=== PATIENT | female | born 1970 | race Caucasian/White ===

== ENCOUNTER → 2020-06-01 17:11 | Outpatient (CLI) | payer BC, SELFPAY ==
--- NOTE | ~2020-06-01 | MM_ITS ---
EXAMINATION: MM screening ree BI w rosette HISTORY: Screening mammogram, family history of breast cancer in her mother. TECHNIQUE: Craniocaudal and mediolateral oblique 3-D tomosynthesis images were obtained and synthetic 2-D images were generated. CAD analysis was submitted and interpreted. COMPARISON: 02/28/2019, 02/12/2018, 01/11/2017 BREAST PARENCHYMAL COMPOSITION: The breasts are extremely dense, which lowers the sensitivity of mamm ography. FINDINGS: There is no evidence of suspicious mass, calcification, or architectural distortion to sugg est malignancy in either breast. There has been no suspicious interval change. IMPRESSION: 1. No mammographic evidence of malignancy. 2. Recommend routine screening mammography in one year. BI-RADS Category 1: Negative Reviewed, dictated and finalized at location A. ING HEAD TENDER
== END ==
PROVIDERS: PCP Internal Medicine; Visit Provider Advanced Practice Midwife
DX: Z12.31 Encounter for screening mammogram for malignant neoplasm of breast (principal)
CPT/HCPCS: 77063; 77067

== ENCOUNTER 2020-08-23 15:41 | Emergency (ER) | payer BC, SELFPAY ==
--- NOTE | ~2020-08-23 | CT_ITS ---
EXAMINATION: CT abdomen pelvis w con DATE: 08/23/2020 17:22 INDICATION: Right lower quadrant pain. TECHNIQUE: Computed tomography (CT) of the abdomen and pelvis was performed with 100 cc Omnipaque 350 intravenous contrast. The dose-length product was 593.69 mGy-cm. Automated exposure control and iter ative reconstruction technique were employed. COMPARISON: CT dated 08/11/2014 FINDINGS: Bibasilar dependent atelectasis. No significant pleural or pericardial effusion. Heart size normal. Fatty infiltration of the liver. There is a 1 cm liver cyst right hepatic lobe. There are smaller hyp odense lesions of the liver, most likely benign. The spleen, pancreas, adrenal glands and kidneys are normal. The appendix is thickened and enhancing with surrounding periappendiceal inflammation, consistent wit h acute appendicitis. Appendix measures up to 1 cm transversely. There is an IUD present in expected position. No evidence for free air or abscess. Small fat-containi ng umbilical hernia. No free air or free fluid. Gallbladder is present. No acute osseous abnormality. Gallbladder is present. IMPRESSION: 1. Acute uncomplicated appendicitis. Reviewed, dictated and finalized at location A. ERY ASSOCIATE
[2020-08-23 16:00] VITALS: BP 134/91; PULSE 94; RESP 18; TEMP 35.7; O2SAT 95
--- NOTE | 2020-08-23 16:02 | ED.ABDPAIN ---
HPI - Abdominal Pain General Chief Complaint: Abdominal Pain Stated Complaint: pain in lower R side Time Seen by Provider: 08/23/20 16:07 Source: patient Mode of arrival: ambulatory Limitations: no limitations History of Present Illness HPI narrative: 50-year-old woman comes in today complaining of pain in right lower quadrant that started 3 days ago. Pain is worse with movement and with brisk walking. She states that she has no appetite today. Patient states she feels mildly ill but has had no nausea, vomiting, diarrhea, cough or cold symptoms, fever, dysuria, hematuria or vaginal discharge. MD elicited complaint: abdominal pain Pertinent past history: none Onset (ago): day(s) (3) Pain Consistency: constant Location: RLQ Severity: severe Quality: sharp Radiation: none Migration to: no migration Exacerbating factors: movement Relieving factors: rest Associated symptoms: anorexia Related Data Home Medications Medication Instructions Recorded Confirmed Mirena 1 vaginal insert VAGINAL 08/23/20 08/23/20 USEASDIRECTD Allergies Allergy/AdvReac Type Severity Reaction Status Date / Time Penicillins Allergy Unknown Unverified 11/04/08 15:43 Review of Systems Constitutional: Constitutional: Denies chills, Denies fever(s) and Denies weakness ENT: Denies nasal congestion and Denies sore throat Cardiovascular: Cardiovascular: Denies chest pain and Denies radiating jaw, neck or arm pain Respiratory: Respiratory: Denies cough and Denies dyspnea Gastrointestinal: Gastrointestinal: Reports as per HPI, Reports abdominal pain, Denies diarrhea, Denies nausea and Denies vomiting Genitourinary: Genitourinary: Denies hematuria, Denies dysuria and Denies vaginal discharge Musculoskeletal: Musculoskeletal: Denies arthralgias and Denies joint swelling Integumentary/Breasts: Skin/Breast: Denies pruritus, Denies erythema and Denies rash Neurologic: Denies vertigo, Denies dizziness and Denies syncope Hematologic/Lymphatic: Hematologic/Lymphatic: Denies easy bleeding and Denies easy bruising Allergic/Immunologic: Allergic/Immunologic: Denies throat swelling and Denies tongue swelling PMF Surgical History Surgical History (Updated 08/23/20 @ 16:12 by Justin Torres MD) H/O: x 2 Social History Social History (Updated 08/23/20 @ 16:12 by Justin Torres MD) Smoking status: Never smoker Alcohol intake: never Substance use: never Living arrangements: with family Exam Const: General: healthy appearing Limitations: no limitations Other: [id number] acute distress. HENMT: Ears: external ears normal, TM's normal bilaterally and EAC's normal General nose exam: Normal nares present Face and sinus: normal facial exam Mouth: Yes moist mucous membranes Throat: posterior oropharynx normal Eyes: Conjunctivae: conjunctivae normal Pupils: Equal, round and reactive pupils present EOM: EOMs intact bilaterally Resp: Effort & Inspection: normal respiratory effort and not labored Auscultation: clear to auscultation bilaterally, no rales, no rhonchi and no wheezes Cardio: Rate: regular rate Rhythm: regular rhythm Heart sounds: no murmurs GI: GI Palp: Yes Soft to palpation, Yes Tenderness to palpation present (GI) (RLQ) and Yes Rebound tenderness present Auscultation: normal bowel sounds Skin: General skin exam: normal color, no jaundice and no pallor Rashes: no rashes Neuro: General: patient oriented x3, moves all extremities, no focal motor deficits and CN's II-XI intact bilaterally Speech: normal speech Gait exam (Neuro): Normal gait present Extrem: General: normal to inspection and no clubbing, cyanosis or edema Psych: Appearance: grossly normal and well kempt Mental Status: mental status grossly normal Affect: normal affect Attitude: cooperative Thought content: Yes Normal thought content present Course Course Emergency Course: Discussed patient's findings with Dr. Fuller
[2020-08-23] MEDS: SODIUM CHLORIDE 0.9% IV 1,000 ML 999 ML IV CONT (16:26)
[2020-08-23] MEDS: ONDANSETRON INJ 4 MG/2 ML VIAL IV PUSH ×2 (16:26→18:10)
[2020-08-23] MEDS: HYDROmorphone HCL INJ (*CRX) 2 MG/ML VIAL 0.5 MG IV PUSH (16:27)
[2020-08-23 16:28] LABS: Basophils Absolute Auto 0.05 K/mm3 (0.00-0.10); Basophils Percent Auto 0.6 % (0.0-1.0); Eosinophils Absolute Auto 0.08 K/mm3 (0.02-0.50); Eosinophils Percent Auto 0.9 % (1.0-6.0); Hematocrit 39.4 % (35.0-49.0); Hemoglobin 13.3 g/dL (12.0-15.0); Immature Granulocyte Absolute 0.03 K/mm3 (0.00-0.00); Immature Granulocyte Percent A 0.3 % (0.0-0.0); Lymphocytes Absolute Auto 2.06 K/mm3 (1.10-4.50); Lymphocytes Percent Auto 23.9 % (18.0-42.0); Mean Corpuscular HGB Conc 33.8 g/dL (32.0-36.0); Mean Platelet Volume 9.7 fl (9.2-11.8); Monocytes Absolute Auto 0.49 K/mm3 (0.10-0.90); Monocytes Percent Auto 5.7 % (2.0-11.0); Neutrophils Absolute Auto 5.9 K/mm3 (1.7-7.2); Neutrophils Percent Auto 68.6 % (50.0-70.0); Platelet Count Result 298 K/mm3 (150-420); Red Blood Count 4.58 M/mm3 (4.20-5.40); Red Cell Distribution Width 12.1 % (11.6-14.4); White Blood Count 8.6 K/mm3 (4.8-10.8)
[2020-08-23 16:39] LABS: Add Urine Microscopic? YES; Appearance Urine Clear (Clear); Bilirubin Urine Negative (Negative); Blood Urine 1+ (Negative); Color Urine Yellow (Yellow); Glucose Urine UA Negative (Negative); Ketones Urine 1+ (Negative); Leukocyte Esterase Ur Negative LEU/UL (Negative); Nitrate Urine Negative (Negative); Protein Urine Negative (Negative); Specific Grav Ur >= 1.030 (1.010-1.020); Urobilinogen Urine 0.2 mg/dL (0.2-1.0)
[2020-08-23 16:43] LABS: Partial Thromboplastin Time 30.5 SEC (23.90-30.70); Prothrombin Time 10.6 Seconds (9.50-12.10)
[2020-08-23 16:45] LABS: Bacteria Urine Trace /hpf; Mucus Urine Few /lpf; Squamous Epithelial Cell Urine Many /hpf (Few); WBC Urine 0-3 /hpf (0-3)
[2020-08-23 16:49] LABS: Alanine Aminotransferase 24 U/L (14-59); Albumin Level 3.8 g/dL (3.4-5.0); Alkaline Phosphatase 78 U/L (46-116); Anion Gap 10 mmol/L (8-16); Aspartate Amino Transferase 25 U/L (15-37); Bilirubin,Total 0.6 mg/dL (0.00-1.00); Blood Urea Nitrogen 7 mg/dL (7-18); Calcium 8.6 mg/dL (8.5-10.1); Carbon Dioxide 26 mmol/L (21-32); Chloride 101 mmol/L (98-108); Estimated CRCL calculation 78 ml/min; Estimated Glomerular Filt Rate > 60; Glucose 119 mg/dL (70-99); Lipase 58 U/L (73-393); Osmolality Calculated 283 mOsm/kg (285-295); Sodium 137 mmol/L (136-145); Total Protein 7.7 g/dL (6.4-8.2)
[2020-08-23 16:51] LABS: Lactic Acid Reflex 0.8 mmol/L (0.4-2.0); Potassium 3.7 mmol/L (3.5-5.1)
--- NOTE | 2020-08-23 17:11 | PC.NURSE ---
pt to xray per wheelchair for CT scan
--- NOTE | 2020-08-23 17:40 | PC.NURSE ---
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 awaiting return call from surgeon health professional.
[2020-08-23 17:52] VITALS: BP 121/64; PULSE 72; RESP 20; TEMP 36.5; O2SAT 98
--- NOTE | 2020-08-23 18:21 | PC.NURSE ---
[facility] called for transport, [facility] unavailable.
[2020-08-23 18:22] VITALS: BP 121/64; PULSE 72; RESP 20; TEMP 36.5; O2SAT 98
--- NOTE | 2020-08-23 18:41 | PC.NURSE ---
here, took home some personal items. marked on belongings flowsheet.
--- NOTE | 2020-08-23 18:44 | PC.NURSE ---
[facility] here, report to Sh[facility] . pt loaded to cot.
== END 2020-08-23 18:55 | disposition short-term general hospital (02) ==
PROVIDERS: Emergency Provider Emergency Medicine; PCP Internal Medicine
DX: K35.80 Unspecified acute appendicitis (principal)
CPT/HCPCS: 36415; 74177; 80053; 81001; 83605; 83690; 85025; 85610; 85730; 96361; 96374; 96375; 96376; 99285; J1170; J1956; J2405; J7030; Q9967

== ENCOUNTER 2020-08-23 19:28 | Observation (INO) | payer BC, SELFPAY ==
--- NOTE | 2020-08-23 19:46 | ADMGEN ---
This patient, Judy Rueda, was admitted to Medical Room 252-01. Patient/family oriented to hospital policies and general routines including ID bracelet, bed and alarms, visiting hours, pain management, procedures, bathroom and other care routines, personal items, smoking policy, room service/diet, and visiting hours. Information on how to activate the Rapid Response Team has been discussed. Patient/Family are encouraged to report perceived risks to care and to ask questions if they do not understand what they are told or what they should do.
[2020-08-23 20:00] VITALS: BMI 27.9
[2020-08-23] MEDS: ONDANSETRON INJ 4 MG/2 ML VIAL IV PUSH (20:34)
[2020-08-23] MEDS: LACTATED RINGERS 1,000 ML 100 ML IV CONT (20:34)
[2020-08-23 22:00] VITALS: BP 110/65; PULSE 73; RESP 21; TEMP 36.1; O2SAT 100
[2020-08-24] VITALS (14 sets, daily range): BP systolic 108–127; BP diastolic 60–77; PULSE 76–90; RESP 9–20; TEMP 36.6–37.1; O2SAT 98–100
[2020-08-24] MEDS: ONDANSETRON INJ 4 MG/2 ML VIAL IV PUSH ×4 (00:49→21:54)
[2020-08-24] MEDS: MORPHINE SULFATE (*CRX) 2 MG/ML INJ IV PUSH ×2 (00:53→04:13)
[2020-08-24 05:10] LABS: Basophils Percent Auto 0.2 % (0.2-1.2); Hematocrit 36.4 % (37.0-47.0); Hemoglobin 12.4 g/dL (12.0-15.0); Immature Granulocyte Absolute 0.04 K/mm3 (0.00-0.031); Immature Granulocyte Percent A 0.4 % (0-0.5); Lymphocytes Absolute Auto 1.12 K/mm3 (0.9-3.2); Lymphocytes Percent Auto 9.9 % (18.3-44.2); Mean Corpuscular HGB Conc 34.1 g/dl (32-36); Mean Corpuscular Hemoglobin 29.9 pg (26-34); Mean Corpuscular Volume 87.7 fl (80-100); Mean Platelet Volume 9.8 fl (7.4-10.4); Monocytes Absolute Auto 0.5 K/mm3 (0.1-0.6); Monocytes Percent Auto 4.5 % (2.6-8.5); Neutrophils Absolute Auto 9.7 K/mm3 (1.3-6.7); Platelet Count Result 279 k/mm3 (150-375); Red Blood Count 4.15 M/mm3 (4.2-5.4); Red Cell Distribution Width 12.2 % (11.5-14.5); White Blood Count 11.4 K/mm3 (4.5-10.0)
[2020-08-24 05:20] LABS: Anion Gap 5 mmol/L (8-16); Blood Urea Nitrogen 8 mg/dL (7-17); Calcium 8.1 mg/dL (8.4-10.2); Carbon Dioxide 26 mmol/L (22-30); Chloride 105 mmol/L (98-107); Estimated CRCL calculation 97 ml/min; Estimated Glomerular Filt Rate > 60; Glucose 116 mg/dL (65-105); Sodium 136 mmol/L (137-145)
[2020-08-24] MEDS: metroNIDAZOLE 500 MG/ISO 100ML 500 MG/100 ML BAG 100 MG IVPB ×4 (06:09→17:58)
--- NOTE | 2020-08-24 07:25 | PM.IMHP ---
H&P: HPI History of Present Illness Date/Time: 08/24/20 07:25 Chief Complaint: Right lower quadrant pain Narrative: Judy Rueda is a 50 year old female Who presented to [facility] last night with complaints of right lower quadrant pain. Her pain started 3 days ago and began as a mild pain in the right side. Pain continued to progressively worsen over Sunday and Sunday. She then tried to go to work yesterday but while she was at work her pain continued to worsen. She also had some nausea that started yesterday. She denies any fevers or any change in bowel habits. She has never felt anything like this before. In [facility] to the ED, she was noted to have evidence of acute appendicitis on CT. She was then transferred to [facility] for further treatment. Review of Systems Review of Systems: All systems reviewed & are unremarkable except as noted in HPI and below Eyes: Eyes: Denies change in vision ENT: Denies hearing loss, Denies neck pain and Denies sore throat Cardiovascular: Cardiovascular: Denies chest pain and Denies dyspnea Respiratory: Respiratory: Denies cough, Denies dyspnea and Denies wheezing Gastrointestinal: Gastrointestinal: Reports as per HPI Genitourinary: Genitourinary: Denies hematuria and Denies dysuria Musculoskeletal: Musculoskeletal: Denies arthralgias, Denies joint swelling and Denies neck pain Allergic/Immunologic: Allergic/Immunologic: Denies wheezing PMFSH Past Medical History Medical History Healthy adult Surgical History Surgical History H/O: x 2 Family History Family History Mother Diabetes mellitus Breast cancer Father Acute myocardial infarction Cerebrovascular accident Social History Social History Smoking status: Never smoker Alcohol intake: never Substance use: never Substance use type: does not use Gender identity (if verbalized by the patient): Female Sexual Orientation (if Verbalized by the Patient): Straight or Heterosexual Spiritual care concerns: No Meds Home Medications and Allergies Home Medications Medication Instructions Recorded Confirmed Type Mirena 1 vaginal insert VAGINAL 08/23/20 08/23/20 History USEASDIRECTD loratadine [Claritin] 10 mg PO DAILY 08/23/20 08/23/20 History multivit with min-folic acid 1 tablet PO DAILY 08/23/20 08/23/20 History [Adult One Daily Multivitamin] Allergies Allergy/AdvReac Type Severity Reaction Status Date / Time Penicillins Allergy Unknown Hives Verified 08/24/20 00:01 Vital Signs Vital Signs - 24 hr 08/23/20 22:00 08/24/20 06:00 Temperature 36.1 C L 36.9 C Pulse Rate 73 89 Respiratory Rate 21 H 20 Blood Pressure 110/65 108/61 Pulse Oximetry 100 98 Exam Const: General: alert; No acute distress Orientation/consciousness: patient oriented x3 Limitations: no limitations HENMT: Head: normocephalic and atraumatic Ears: hearing grossly normal bilaterally General nose exam: Normal external nose present and Normal nares present Mouth: Yes Normal oral and palatal mucosa present and Yes moist mucous membranes Eyes: General: appearance normal, both eyes and all related structures Conjunctivae: conjunctivae normal Sclera: sclerae normal Pupils: Equal, round and reactive pupils present EOM: EOMs intact bilaterally Neck: Neck: normal visual inspection, full ROM, no lymphadenopathy, supple and no JVD Lymphatic: no lymphadenopathy noted Chest: Chest palpation & inspection: normal inspection of the chest Resp: Effort & Inspection: normal respiratory effort and able to speak in complete sentences Auscultation: clear to auscultation bilaterally Percussion: percussion normal Cardio: Jugular venous distension: no JV
--- NOTE | 2020-08-24 08:09 | WPDANESEPPF ---
Anes - Initial Pre Proc Eval Procedure: Operation Date: 08/24/20 15:45 Proposed Procedures p Laparoscopic Appendectomy, Possible Open - Facundo Colon DO Date/Time: 08/24/20 08:09 Surgeon: Facundo Colon DO Pre Op Diagnosis: Appendicitis Patient Data Age: 50 Gender: F Height: 1.65 m Weight: 76.1 kg Last Vital Signs Temp 36.9 C 08/24/20 06:00 Pulse 89 08/24/20 06:00 Resp 20 08/24/20 06:00 BP 108/61 08/24/20 06:00 Pulse Ox 98 08/24/20 06:00 Allergies Allergy/AdvReac Type Severity Reaction Status Date / Time Penicillins Allergy Unknown Hives Verified 08/24/20 08:14 Home Medications Medication Instructions Recorded Confirmed Type Adult One Daily Multivitamin 1 tablet PO DAILY 08/23/20 08/23/20 History Mirena 1 vaginal insert VAGINAL 08/23/20 08/23/20 History USEASDIRECTD loratadine [Claritin] 10 mg PO DAILY 08/23/20 08/23/20 History hydrocodone-acetaminophen [[place]] 1 tablet PO Q4H PRN #10 tablet 08/24/20 Rx Laboratory Tests 08/24/20 08/24/20 04:46 04:46 WBC 11.4 K/mm3 H K/mm3 (4.5-10.0) RBC 4.15 M/mm3 L M/mm3 (4.2-5.4) Hgb 12.4 g/dL g/dL (12.0-15.0) Hct 36.4 % L % (37.0-47.0) MCV 87.7 fl fl (80-100) MCH 29.9 pg pg (26-34) MCHC 34.1 g/dl g/dl (32-36) RDW 12.2 % % (11.5-14.5) Plt Count 279 k/mm3 k/mm3 (150-375) MPV 9.8 fl fl (7.4-10.4) Immature Gran % (Auto) 0.4 % % (0-0.5) Neut % (Auto) 85.0 % H % (45.5-73.1) Lymph % (Auto) 9.9 % L % (18.3-44.2) [place] % (Auto) 4.5 % % (2.6-8.5) Eos % (Auto) 0.0 % % (0-4.4) Baso % (Auto) 0.2 % % (0.2-1.2) Lymph # (Auto) 1.12 K/mm3 K/mm3 (0.9-3.2) [place] # (Auto) 0.5 K/mm3 K/mm3 (0.1-0.6) Eos # (Auto) 0.0 K/mm3 K/mm3 (0-0.3) Baso # (Auto) 0.0 K/mm3 K/mm3 (0.0-0.1) Abs Immat Gran (auto) 0.04 K/mm3 H K/mm3 (0.00-0.031) Absolute Neuts (auto) 9.7 K/mm3 H K/mm3 (1.3-6.7) Absolute Nucleated RBC 0.0 K/mm3 K/mm3 (0.0-0.012) Nucleated RBC % 0.0 % % (0.0-0.2) Sodium 136 mmol/L L mmol/L (137-145) Potassium 4.0 mmol/L mmol/L (3.4-5.0) Chloride 105 mmol/L mmol/L (98-107) Carbon Dioxide 26 mmol/L mmol/L (22-30) Anion Gap 5 mmol/L L mmol/L (8-16) BUN 8 mg/dL mg/dL (7-17) Creatinine 0.60 mg/dL L mg/dL (0.7-1.0) Estim Creat Clear Calc 97 ml/min ml/min Estimated GFR > 60 (59 - ) Glucose 116 mg/dL H mg/dL (65-105) Calcium 8.1 mg/dL L mg/dL (8.4-10.2) Patient hx anesthesia problems: none Family hx anesthesia problems: none [facility] Past Medical History Medical History Healthy adult Surgical History Surgical History H/O: x 2 Family History Family History Mother Diabetes mellitus Breast cancer Father Acute myocardial infarction Cerebrovascular accident Social History Social History Smoking status: Never smoker Alcohol intake: never Substance use: never Substance use type: does not use Gender identity (if verbalized by the patient): Female Sexual Orientation (if Verbalized by the Patient): Straight or Heterosexual Spiritual care concerns: No Anes - Eval Final PreProcedure Day of Procedure 08/24/20 08:09 Patient weight: overweight Heart: regular rate and rhythm Lungs: clear to auscultation and normal air movement Airway: Mallampati scale class II Neurological: alert and oriented Last oral intake: >/= 8 hours ASA classification: II Emergent: no Anesthetic plan: proceed Anesthesia type and monitoring: general ETT Informed Consent: The patient's anesthetic plan and its attenda
[2020-08-24] MEDS: LACTATED RINGERS 1,000 ML 30 ML IV CONT ×2 (08:23→11:05)
--- NOTE | 2020-08-24 08:29 | PC.NURSE ---
To OR per bed, IV saline locked.
--- NOTE | 2020-08-24 09:53 | WPDHPUPDATE1 ---
History and Physical Update Update Date/Time: 08/24/20 09:53 History and Physical has been reviewed, including an updated exam of the patient. There are NO changes in the patient's condition. Risks, benefits, and alternatives have been discussed and questions answered. Patient agrees to proceed with procedure.
[2020-08-24] MEDS: BUPIVACAINE/EPINEPHRINE 0.25% 50 ML VIAL 30 ML INFILTRATE (10:26)
--- NOTE | 2020-08-24 11:02 | PM.PROC ---
Procedure Note - Detailed Date of procedure: 08/24/20 Pre-op diagnosis: Appendicitis Post-op diagnosis: same (Acute appendicitis with localized peritonitis without perforation or abscess) Procedure performed: Laparoscopic Appendectomy Description of procedure: Procedure as well as risks, benefits, and alternatives were explained to the patient. The patient agreed to proceed. Written consent was obtained and placed in chart prior to procedure. The patient was brought back to surgical suite. She was placed supine on operating table. Time-out was done to confirm the patient and procedure. The patient was then intubated by the Anesthesia Department. Her abdomen was prepped and draped in sterile fashion using chlorhexidine prep. A 5 mm incision was made just to the left of the patient's umbilicus and a 5 mm Optiview trocar was advanced through the abdominal layers under direct visualization. Once inside the peritoneal cavity, carbon dioxide insufflation was used to create a pneumoperitoneum. The camera was inserted and the abdomen was inspected. No immediate abnormalities were identified. The patient was then placed in slight Trendelenburg position and rotated to the left. A 5 mm incision was made in the suprapubic region in midline and a 5 mm trocar was inserted under direct visualization. A 12 mm incision was made in the left lower quadrant and a 12 mm trocar was inserted under direct visualization. The right lower quadrant was carefully inspected. The cecum was identified and then this was traced back to the appendix. The appendix was identified and grasped at the mesoappendix and lifted anteriorly. Careful blunt dissection was carried out at the base of the appendix through the mesoappendix using a [place] grasper. An Endo-MAGEN 45 mm blue load stapler was then advanced across the base of the appendix and clamped and fired. A white reload was then clamped across the mesoappendix and fired. This freed up our appendix completely. It was then placed in an EndoCatch bag and removed through the left lower quadrant port. The staple lines were then inspected. Hemostasis appeared adequate and the staple lines appeared secure. The area was then irrigated with sterile saline. The pelvis was then carefully inspected and irrigated with sterile saline as well and the remainder of the abdomen was carefully inspected. The patient was then flattened out in bed. One final inspection was made around the abdominal cavity and no other abnormalities were seen. The left lower quadrant port was removed and a Santy-Rosibel cone was used to approximate the fascia with a 0 Vicryl simple interrupted suture. The remaining ports were then removed under direct visualization. The camera was removed and the pneumoperitoneum was released. 0.5% bupivacaine with epinephrine was infiltrated locally around each of the incisions. The skin of the incisions was then approximated using 4-0 Monocryl subcuticular suture and Exofin glue was applied on top. The patient was then awakened from anesthesia, extubated, and transferred to Recovery. Anesthesia: GETA and local (0.5% bupivicaine with epi) Surgeon: Facundo Colon DO Estimated blood loss (mL): 5 Pathology: yes (Appendix) Complications: No immediate complications Condition: stable Disposition: floor Findings: This is a 50-year-old woman who presented with right lower quadrant pain that started about 3 days ago. She presented to [facility] last night with worsening pain and CT showed evidence of acute appendicitis. She was transferred to [facility] for further treatment. Her white blood count was slightly elevated and she continued to have right lower quadrant pain. She was started on IV Levaquin and Flagyl in the emergency department. Discussions were made with the patient about treatment options and decision was made to proceed with laparoscopic appendectomy, possible open. Laparoscopic appendect
[2020-08-24] MEDS: fentaNYL CITRATE INJ (*CRX) 100 MCG/2 ML VIAL 25 MCG IV PUSH ×3 (11:23→12:11)
[2020-08-24] MEDS: LACTATED RINGERS 1,000 ML 100 ML IV CONT (12:39)
[2020-08-24] MEDS: HYDROcodone/acetaminophen (*CRX) 5-325 MG TABLET 1 TAB PO ×3 (12:41→21:54)
[2020-08-25] MEDS: metroNIDAZOLE 500 MG/ISO 100ML 500 MG/100 ML BAG 100 MG IVPB ×2 (00:06→05:27)
[2020-08-25 02:10] VITALS: BP 112/64; PULSE 75; RESP 20; TEMP 36.3; O2SAT 99
[2020-08-25] MEDS: HYDROcodone/acetaminophen (*CRX) 5-325 MG TABLET 1 TAB PO ×2 (02:52→07:06)
[2020-08-25 05:33] LABS: Hemoglobin 11.6 g/dL (12.0-15.0); Mean Corpuscular HGB Conc 33.1 g/dl (32-36); Mean Corpuscular Hemoglobin 29.3 pg (26-34); Mean Corpuscular Volume 88.4 fl (80-100); Mean Platelet Volume 10.2 fl (7.4-10.4); Platelet Count Result 267 k/mm3 (150-375); Red Blood Count 3.96 M/mm3 (4.2-5.4); Red Cell Distribution Width 12.4 % (11.5-14.5); White Blood Count 11.6 K/mm3 (4.5-10.0)
[2020-08-25 05:50] LABS: Anion Gap 5 mmol/L (8-16); Blood Urea Nitrogen 6 mg/dL (7-17); Carbon Dioxide 27 mmol/L (22-30); Chloride 105 mmol/L (98-107); Estimated CRCL calculation 97 ml/min; Estimated Glomerular Filt Rate > 60; Glucose 116 mg/dL (65-105); Potassium 3.5 mmol/L (3.4-5.0); Sodium 137 mmol/L (137-145)
[2020-08-25 06:10] VITALS: BP 109/64; PULSE 72; RESP 20; TEMP 36.1; O2SAT 98
--- NOTE | 2020-08-25 07:32 | WPDANESPN ---
Anes - Prog Note Post-Op Date/Time: 08/25/20 07:32 Cardiovascular status: normal Respiratory status: normal Airway patency: baseline Mental status: baseline Post-Op hydration status: normal Vital Signs: Last Vital Signs Temp 36.3 C L 08/25/20 02:10 Pulse 75 08/25/20 02:10 Resp 20 08/25/20 02:10 BP 112/64 08/25/20 02:10 Pulse Ox 99 08/25/20 02:10 Pain Score (VAS): 2 I/O: Intake & Output 08/24/20 08/24/20 08/25/20 15:59 23:59 07:59 Intake Total 1150 550 200 Balance 1150 550 200 Laboratory Tests 08/25/20 04:51 08/25/20 04:51 08/25/20 08/25/20 04:51 04:51 WBC 11.6 H RBC 3.96 L Hgb 11.6 L Hct 35.0 L MCV 88.4 MCH 29.3 MCHC 33.1 RDW 12.4 Plt Count 267 MPV 10.2 Sodium 137 Potassium 3.5 Chloride 105 Carbon Dioxide 27 Anion Gap 5 L BUN 6 L Creatinine 0.60 L Estim Creat Clear Calc 97 Estimated GFR > 60 Glucose 116 H Calcium 8.0 L Post-procedural complaints: none Patient Feedback: Patient satisfied with anesthetic care.
--- NOTE | 2020-08-25 09:08 | PM.PNGS ---
Progress Note: A&P Assessment and Plan (1) Acute appendicitis: Qualifiers: Acute appendicitis type: with localized peritonitis Appendicitis gangrene presence: unspecified whether gangrene present Appendicitis perforation presence: unspecified whether perforation present Appendicitis abscess presence: unspecified whether abscess present Qualified Code(s): K35.30 - Acute appendicitis with localized peritonitis, without perforation or gangrene Code(s): K35.80 - Unspecified acute appendicitis Status: Acute Assessment and Plan: Patient was kept overnight for pain control, drowsiness, and nausea. She is more awake and doing better this morning with her pain controlled and nausea subsided. Will discharge the patient today. Discussed d/c instructions and answered all questions. Follow-up in 2 weeks in the office. Subjective Subjective Date/Time Seen: 08/25/20 09:08 Post Op day: 1 (lap appy) Patient reports: no new complaints, pain is less, tolerating a regular diet, voiding w/o difficulty and flatus Interval history: Patient seen this morning. She had some intermittent nausea overnight, which has since subsided this morning. She denies any vomiting. Tolerated her entire breakfast tray. Pain is controlled this morning. No other complaints. Review of Systems Review of Systems: All systems reviewed & are unremarkable except as noted in HPI and below Exam Const: General: comfortable, no acute distress, alert and awake Orientation/consciousness: patient oriented x3 GI: Inspection: non-distended and incision (Abdominal incisions clean and dry, glue intact.) GI Palp: Yes Soft to palpation and Yes Tenderness to palpation present (GI) (incisional) Auscultation: normal bowel sounds Skin: General skin exam: normal color Neuro: General: moves all extremities and no focal motor deficits Cranial nerves: Yes CN's II-XII intact bilaterally Extrem: General: no clubbing, cyanosis or edema and no calf tenderness Psych: Mental Status: mental status grossly normal Attitude: cooperative Thought process: Normal thought process present Thought content: Yes Normal thought content present Insight: Good insight present (Psych) Judgement: Good judgement present (Psych) Objective Data Vital Signs Vital Signs: Vital Signs - 24 hr 08/24/20 11:05 08/24/20 11:20 08/24/20 11:35 Temperature 97.8 F Pulse Rate 90 83 79 Respiratory Rate 18 13 10 L Blood Pressure 113/60 116/72 119/67 Pulse Oximetry 100 100 100 02/02/21 11:50 08/24/20 11:59 08/24/20 12:10 Temperature Pulse Rate 78 77 76 Respiratory Rate 9 L 13 11 L Blood Pressure 127/65 115/71 124/73 Pulse Oximetry 100 100 99 08/24/20 12:23 08/24/20 12:40 08/24/20 12:55 Temperature 98.5 F 98.2 F Pulse Rate 77 76 79 Respiratory Rate 11 L 16 16 Blood Pressure 123/77 123/67 120/65 Pulse Oximetry 99 99 98 08/24/20 13:25 08/24/20 18:00 08/24/20 22:10 Temperature 98.2 F 98.8 F 97.8 F Pulse Rate 84 86 80 Respiratory Rate 18 16 20 Blood Pressure 111/62 109/67 117/61 Pulse Oximetry 100 100 99 08/25/20 02:10 08/25/20 06:10 Temperature 97.4 F L 97.0 F L Pulse Rate 75 72 Respiratory Rate 20 20 Blood Pressure 112/64 109/64 Pulse Oximetry 99 98 Intake/Output Intake/Output: Intake & Output 08/22/20 08/23/20 08/24/20 08/25/20 23:59 23:59 23:59 23:59 Intake Total 1900 980 Output Total 800 800 Balance 1100 180 Meds/Results Medications: Active Medications Generic Name Dose Route Start Last Admin Trade Name Freq PRN Reason Stop Dose Admin Hydrocodone Bitart/Acetaminophen 1 tab 08/24/20 12:25 08/25/20 07:06 Hydrocodone/Acetaminophen (*Crx) 5-325 Mg Tablet PO 1 tab Q4H PRN Administration Pain Rated 4-6 Hydrocodone Bitart/Acetaminophen 1 tab 08/24/20 12:25 Hydrocodone/Acetaminophen (*Crx) 7.5-325 Mg Tablet PO Q4H PRN Pain Rated 7-10 Metronidazole 500 mg in 100 mls @ 100 mls/hr 08/24/20 00:00
--- NOTE | 2020-08-25 10:19 | PM.DS ---
DS: Admitting Diagnosis Admitting Diagnosis Admitting Diagnosis: Acute appendicitis DS: Discharge Diagnosis Discharge Diagnosis (1) Acute appendicitis: Qualifiers: Acute appendicitis type: with localized peritonitis Appendicitis gangrene presence: without gangrene Appendicitis perforation presence: without perforation Appendicitis abscess presence: without abscess Qualified Code(s): K35.30 - Acute appendicitis with localized peritonitis, without perforation or gangrene Code(s): K35.80 - Unspecified acute appendicitis Status: Acute DS: Summary Hospital Course Reason for hospitalization: Acute appendicitis Hospital Course: This is a 50-year-old woman who presented to [place] ED on 08/23/2020 with right lower quadrant pain for the past [address] in the emergency department showed evidence of acute appendicitis. She was started on IV Levaquin and Flagyl and was transferred to [facility] for further treatment. She underwent laparoscopic appendectomy on 08/24/2020. Surgery was uncomplicated and she was returned to the surgical floor postoperatively. That afternoon, she was having some increasing pain at the left lower quadrant incision and was still somewhat groggy from the anesthesia. She was kept in the hospital for further recovery and monitoring. On postop day 1 she had no signs of fever and her white blood count was only slightly elevated at 11 K. Her pain was much better controlled and she was tolerating her diet. She was discharged on postop day 1. Status at Discharge Functional status at discharge: independent ambulation Overall status at discharge: patient is progressing back to baseline Time Spent with Patient Time attestation: Total time spent providing and/or coordinating discharge services: Time spent: Less than 30 minutes Exam GI: Inspection: non-distended and incision (Intact with glue) GI Palp: Yes Soft to palpation, Yes Tenderness to palpation present (GI) (Appropriate incisional) and No Guarding due to palpation present (GI) Auscultation: normal bowel sounds DS: Data Data Completed and Pending Pending studies at discharge: Pending at discharge 08/24/20 10:23 Surgical [PTH] Routine Labs on day of discharge: Labs from last 24 hours 08/25/20 08/25/20 04:51 04:51 WBC 11.6 H RBC 3.96 L Hgb 11.6 L Hct 35.0 L MCV 88.4 MCH 29.3 MCHC 33.1 RDW 12.4 Plt Count 267 MPV 10.2 Sodium 137 Potassium 3.5 Chloride 105 Carbon Dioxide 27 Anion Gap 5 L BUN 6 L Creatinine 0.60 L Estim Creat Clear Calc 97 Estimated GFR > 60 Glucose 116 H Calcium 8.0 L Discharge Plan Discharge Attending physician on discharge: Facundo Schulte Discharging Clinician: Facundo Schulte Anticipated Discharge Date/Time: 08/24/20 15:00 Patient Disposition: Home, Self-Care Activity: other - see discharge instructions Diet: other - see discharge instructions Wound Care Instructions: other - see discharge instructions Discharge Instructions: DISCHARGE INSTRUCTION SHEET FOR HERNIA, GALLBLADDER AND APPENDIX SURGERIES DR. SCHULTE PATIENT TO TAKE HOME 1. May shower in 24 hours, no soaking in bath x 2weeks. 2. Call office for: Wound increasingly painful or bleeding Vomiting Fever of greater than 101 degrees 3. If no bowel movement for three days, take 1 oz. (30 ml) Milk of Magnesia or MiraLax 17g 1 to 2 times daily. 4. No heavy lifting > 10-15 pounds x weeks for hernia repairs and 2 weeks for laparoscopic cholecystectomy or appendectomy. 5. No driving for 3 days or while taking narcotic pain medications. 6. Ice to surgical site for 48 hours (30 min on, then 30 min off). 7. Up walking 10-30 minutes three times per day. 8. Resume previous home medications. 9. Follow-up 10-14 days in office for wound check or as previously scheduled. ([phone])
== END 2020-08-25 11:01 | disposition home or self-care (01) ==
PROVIDERS: Admitting Provider Surgery; PCP Internal Medicine; Visit Provider Surgery
PROC: 0DTJ4ZZ Resection of Appendix, Percutaneous Endoscopic Approach (ICD-10-PCS; CPT 44970; principal; 2020-08-24 15:45)
DX: K35.30 Acute appendicitis with localized peritonitis, without perforation or gangrene (principal)
CPT/HCPCS: 44970; 36415; 80048; 85025; 85027; 88304; 96365; 96366; 96375; 96376; A9270; G0378; J0330; J1100; J1956; J2250; J2270; J2405; J2704; J3010; J7030; J7120

== ENCOUNTER → 2021-10-04 16:47 | Outpatient (CLI) | payer BC, SELFPAY ==
--- NOTE | ~2021-10-04 | MM_ITS ---
EXAMINATION: MM screening ree BI w rosette HISTORY: Screening mammogram, family history of breast cancer in her mother. TECHNIQUE: Craniocaudal and mediolateral oblique 3-D tomosynthesis images were obtained and synthetic 2-D images were generated. CAD analysis was submitted and interpreted. COMPARISON: 06/01/2020, 02/28/2019 BREAST PARENCHYMAL COMPOSITION: The breasts are extremely dense, which lowers the sensitivity of mamm ography. FINDINGS: There is no suspicious mass, calcification, or architectural distortion to suggest malignan cy in either breast. There has been no suspicious interval change. IMPRESSION: 1. No mammographic evidence of malignancy. 2. Recommend routine screening mammography in one year. BI-RADS Category 1: Negative Reviewed, dictated and finalized at location A.
== END ==
PROVIDERS: Visit Provider Advanced Practice Midwife
DX: Z12.31 Encounter for screening mammogram for malignant neoplasm of breast (principal)
CPT/HCPCS: 77063; 77067

== ENCOUNTER → 2023-03-31 09:05 | Outpatient (CLI) | payer OTHER, SELFPAY ==
--- NOTE | ~2023-03-31 | MM_ITS ---
EXAMINATION: MM screening ree BI w rosette HISTORY: Screening mammogram TECHNIQUE: Craniocaudal and mediolateral oblique 3-D tomosynthesis images were obtained and synthetic 2-D images were generated. CAD analysis was submitted and interpreted. COMPARISON: 10/02/2021, 06/01/2020 bilateral screening mammogram examinations BREAST PARENCHYMAL COMPOSITION: The breasts are heterogeneously dense, which may obscure small masses . FINDINGS: There is no evidence of suspicious mass, calcification, or architectural distortion to sugg est malignancy in either breast. There has been no suspicious interval change. IMPRESSION: 1. No mammographic evidence of malignancy. 2. Recommend routine screening mammography in one year. BI-RADS Category 1: Negative Reviewed, dictated and finalized at location A.
== END ==
PROVIDERS: PCP Advanced Practice Midwife; Visit Provider Advanced Practice Midwife
DX: Z12.31 Encounter for screening mammogram for malignant neoplasm of breast (principal)
CPT/HCPCS: 77063; 77067

== ENCOUNTER 2024-12-18 15:37 | Outpatient (CLI) | payer OTHER, SELFPAY ==
--- NOTE | ~2024-12-18 | DEXA_ITS ---
Bone Density Report Name: MICKI VILLASEÑOR Age: 54 Sex: Female Ethnicity: White Date of : 1970 Indication: postmenopausal; screening for osteoporosis; asthma or emphysema; Referring Provider: Narcisa Newell Study: Bone densitometry was performed. Exam Date: December 18, 2024 Accession number: [id number] Bone Density: Region BMD T-score Z-score Classification AP Spine(L1-L4) 0.944 -0.9 0.1 Normal Femoral Neck (Left) 0.753 -0.9 0.2 Normal Total Hip (Left) 0.907 -0.3 0.4 Normal Femoral Neck (Right) 0.712 -1.2 -0.2 Osteopenia Total Hip (Right) 0.896 -0.4 0.3 Normal Femoral Neck Mean 0.733 -1.0 0.0 Normal Total Hip Mean 0.902 -0.3 0.3 Normal World Health Organization criteria for BMD impression classify patients as: Normal (T-score at or above -1.0), Osteopenia (T-score between -1.0 and -2.5), or Osteoporosis (T-score at or below -2.5). 10-year Fracture Risk(1): Major Osteoporotic Fracture 5.5% Hip Fracture 0.3% Reported Risk Factors: [place] (), Neck BMD=0.712, BMI=21.9 (1) FRAX(R) Version 3.08. Fracture probability calculated for an untreated patient. Fracture probability may be lower if the patient has received treatment. Clinical Information Provided by Patient: Has used the following medications: Vitamin D, Calcium Has the following medical conditions: Asthma or Emphysema Patient maximum height was 65 No regular weight bearing exercise Does not regularly consume dairy products Drinks caffeinated beverages Onset of menses at age 15 Number of children 2 Impression: The patient has low bone mass, based on the Right Femoral Neck T-score. Discussion: BONE DENSITY IS LOW AT ONE OR MORE SKELETAL SITES. This patient's lowest T-score is low at one or more skeletal sites. It meets the World Health Organization's (WHO) criteria for ?low bone mass? (T-score between -1.0 and -2.5). The patient's 10-year risk of fracture as calculated by FRAX is less than the threshold where pharmacological therapy is recommended by the National Osteoporosis Foundation (NOF). However, all treatment decisions require clinical judgment and consideration of individual patient factors, including patient preferences, comorbidities, previous drug use, risk factors not captured in the FRAX model (e.g., frailty, falls, vitamin D deficiency, increased bone turnover, interval significant decline in bone density) and possible under or overestimation of fracture risk by FRAX. The patient should follow a healthful lifestyle (good nutrition with adequate calcium and vitamin D, and appropriate weight-bearing exercise). Follow-Up: Consider repeating this study in 2 to 3 years to reassess this patient's status, or sooner if there is some new clinical indication. Reported by: PRAMOD on 12/18/2024 4:27:00 PM. Reviewed, dictated and finalized at location A.
--- NOTE | ~2024-12-18 | XR_ITS ---
Left Shoulder Technique: AP and scapular Y views were obtained. Clinical History: Pain Findings: No fracture or dislocation is seen. Osseous alignment is anatomic. The glenohumeral and acr omioclavicular joint spaces are preserved. Soft tissues are unremarkable. Impression: Unremarkable left shoulder radiographs. Reviewed, dictated and finalized at [facility]. Impression: Unremarkable left shoulder radiographs.
--- OUTSIDE RECORDS SUMMARY | 2024-12-18 15:45 | XMS_ITS | Clinical Summary ---
Author Organization [address] lt Address [address] [place] [address] Care Team Providers Care Patient Financial Services Specialist Name Role Phone Narcisa Newell MD Primary Care Provider [phone] Allergies Active Allergy Reactions Criticality Noted Date Comments Penicillins Hives Medium 10/12/2022 Medications metFORMIN XR (GLUCOPHAGE XR) 500 mg 24 hr tablet 04/23/2024 Active atorvastatin (LIPITOR) 10 mg tablet 04/24/2024 Active albuterol HFA (PROVENTIL HFA,VENTOLIN HFA,PROAIR HFA) 90 mcg/actuation inhaler Active diphenhydrAMINE 25 mg capsule take 2 capsule by ORAL route 4 - 6 hours as needed Active levonorgestreL (Mirena) IUD 06/07/2017 Active mirtazapine (REMERON) 7.5 mg tablet 03/17/2024 Active Active Problems No known active problems Encounters Date Type Department Care Team Description 10/04/2024 6:30 PM CDT Office Visit [facility] [place] [address] [place] [address] Kathy Jiménez NP Acute non-recurrent maxillary sinusitis (Primary Dx) from Last 3 Months Surgical History Surgery Date Site/Laterality Comments APPENDECTOMY 2021 Medical History Medical History Date Comments Asthma Pre-diabetes Social History Tobacco Use Types Packs/Day Years Used Date Smoking Tobacco: Never Smokeless Tobacco: Never Tobacco Cessation:Counseling Given: Not Answered Comments No Sex and Gender Information Value Date Recorded Sex Assigned at Not on file Legal Sex Female 10:11 PM VISUAL LEAD Gender Identity Not on file Sexual Orientation Not on file Obstetrics History Last Filed Vital Signs Vital Sign Reading Time Taken Comments Blood Pressure 124/78 10/04/2024 6:40 PM CDT Pulse 123 10/04/2024 6:40 PM CDT Temperature 38.1 C (100.6 F) 10/04/2024 6:40 PM CDT Respiratory Rate 18 10/04/2024 6:40 PM CDT Oxygen Saturation 98% 10/04/2024 6:40 PM CDT Inhaled Oxygen Concentration - - Weight 72.4 kg (159 lb 9.6 oz) 10/04/2024 6:40 P M CDT Height 165.1 cm (5' 5) 06/03/2024 5:15 PM VISUAL LEAD Body Mass Index 26.56 06/03/2024 5:15 PM VISUAL LEAD Plan of Treatment Health Maintenance Due Date Last Done Comments Cervical Cancer Screening 1970 Colon Cancer Screening-Colonoscopy 1970 Depression Screening 1970 Hepatitis C Screening 1970 Hepatitis B Screening 1988 Regular Well Visit/Exam 18-64 1988 Pneumococcal vaccine <65 (2 of 2 - PPSV23) 01/19/2022 11/24/2021 Covid-19 Vaccine (2023-2 5 season) 2024 08/15/2021, 09/04/2020, 08/07/2020 Breast Cancer Screening-Mammogram 04/01/2024 04/01/2023, 03/31/2023, 10/05/2021, Additional history exists Influenza Vaccine (Season Ended) 2025 04/17/2019, 05/02/2018, 04/23/2017, Additional history exists DTaP/Tdap/Td Vaccine (2 - Td or Tdap) 04/23/2027 04/23/2017 Zoster Vaccine Completed 02/08/2022, 11/24/2021 Insurance [facility] Care Teams Patient Financial Services Specialist Relationship Specialty Start Date End Date Narcisa Newell MD [address] [place], [place] [id number] PCP - General Internal Medicine 10/12/22
--- OUTSIDE RECORDS SUMMARY | 2024-12-18 15:45 | XMS_ITS | Data Portability ---
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 Patient will come back in a year unless there are new symptoms. happy with mirena, mammogram order given, plan checking labs next year when mirena due to be removed Not available 05/18/2020 09:40:00 06/21/2021 06/21/2021 Annual gynecological exam performed. Patient will come back in a year unless there are new symptoms. Suggest Calcium with Vitamin D if not eating in diet. Patient advised to get annual flu shot. Recommend yearly physicals and preform monthly breast exams. Genetic testing is available for patients with family history of cancer. Engage in safe sexual practices, use condoms. Encouraged to have daily exercise. Avoid tobacco and illicit drugs, moderation of alcohol. If BMI greater than 25 dietary consult advised. If you have any questions please call or email. consider FSH/LH next year, aware IUD ok for 7 years, plan dexa one year post menopause, mammogram order given Not available 06/21/2021 15:56:56 07/13/2022 07/13/2022 Annual gynecological exam performed. Patient will come back in a year unless there are new symptoms. [email or web address] Not available 07/13/2022 09:32:38 08/10/2023 08/10/2023 Annual gynecological exam performed. Patient will come back in a year unless there are new symptoms. Not available 08/10/2023 10:40:03 08/15/2024 08/15/2024 Annual gynecological exam performed. Patient will come back in a year unless there are new symptoms. [email or web address] Not available 08/15/2024 09:27:24 Plan of Treatment Reminders Order Date Submit Date Provider Last Modified By Organization Details Last Modified Time Details Appointments None recorded. Lab hormone panel, serum or plasma [address] (Lab), [address], [place], [address], 11:22:50 Referral None recorded. Procedures None recorded. Surgeries None recorded. Imaging MAMMO, screening, digital, bilateral [address], [address], [place], [address], 15:30:11 Medication Orders None recorded. Patient TargetsNo targets recorded. Patient Instructions Encounter Date Encounter Id Patient Instructions Last Modified By Organization Details Last Modified Time 05/18/2020 [id number] Suggest Calcium with Vitamin D if not eating in diet. Patient advised to get annual flu shot. Recommend yearly physicals and preform monthly breast exams. Genetic testing is available for patients with family history of cancer. Engage in safe sexual practices, use condoms. Encouraged to have daily exercise. Avoid tobacco and illicit drugs, moderation of alcohol. If BMI greater than 25 dietary consult advised. If you have any questions please call or email. f/u one year wwe Not available 05/18/2020 09:40:09 Reason for Referral None Reported. Results Created Date Observation Date Name Description Value Unit Range Abnormal Flag Note LastModifiedBy Organization Detail LastModifiedTime 05/18/20 20 05/20/2020 pap, LB Pap test thin prep Negati ve for Intrae pithel ial Lesion or Malign zee normal ACCES THUY #: [id number] Sourc e: Cervi hilario/E ndoce rvica l LMP: 2017 Date Taken : 05/18 Speci men Type: ThinP rep Vial Date Repor jillian: 05/20 Clini hilario Data: Cytot ech: Demetra Lopez , CT( CP) Date Repor jillian: 05/20 Speci men Adequ acy: Satis facto ry for evalu ation No endoc ervic al/tr ansfo rmati on zone compo nent prese nt Gener al Categ oriza tion: NEGAT RUFINO FOR INTRA EPITH ELIAL LESKARRIE N OR MALIG MICKI This speci men has been slim zed by the ThinP rep Imagi ng Syste m, an inter activ e compu ter syste m which christopher ts the lab in the scree azar of ThinP rep Pap Test slide s. Follo wing imagi ng, the slide was revie wed by a Cytot echno logis t and/o r Patho logis t. D N A A S S A Y S R E P O R T TEST NAME RESUL TS ----- ---- ----- -- HPV High Risk Janice n (TMA) ThinP rep Vial The human papil lomav irus (HPV) High Risk Janice n is an FDA-a pprov ed in-vi tro ampli fied nucle ic acid test for the quali tativ e detec tion of E6/E7 viral mRNA. Resul ts rosie d be corre lated with patie nt prese ntati on, histo ry, cervi hilario cytol ogy and other clini hilario and labor atory findi ngs. See https ://[employer]/s ites/ defau lt/fi les/2 018-0 3/- 41209 _002_ 01.pd f for furth er infor matio n. Test perfo rmed by [facility], d/b/a [facility] anton[facility], [address], [place] [address] , Wayne Ramires ra, DO, Labor atory Direc tor. HPV High Risk *HPV NOT DETEC JILLIAN (TYPE S 16, 18, 31, 33, 35, 39, 45, 51, 52, 56, 58, 59, 66, 68) *HPV: The human papil lomav irus (HPV) High Risk Scree n is an FDA-a pprov ed in-vi tro ampli fied nucle ic acid test for the quali tativ e detec tion of E6/E7 viral mRNA. Resul ts rosie jhaveri be corre lated with adeola nt prese ntati on, histo ry, cervi hilario cytol ogy and other clini hilario and labor atory findi ngs. See https ://[employer]/s ites/ defdelicia lt/fi les/2 018-0 3/AW- 98856 _002_ 01.pd f for furth er infor kraig n. Test perfo rmed by [facility] [employer] d/b/a Luis zaldivar, [address] [facility], [place] [address] , Wayne Ramires ra, DO, Labor atory Direc tor. End of Repor t Techn ical servi kennedi provi ded by [employer] [facility] [employer] d/b/a [facility], [address] [place] [address] Angel Solis MD, Labor atory Direc tor. Case revie wed and diagn osis rende red at [employer] d/b/a [facility], [address] [place] [address] Angel Solis MD, Labor atorQobliQ Group Direc tor. CONFI DENTI AL Not Available [facility] ([facility]) [address] [place] [address], [place], [address], 05/20/2020 12:53:48 05/18/20 20 05/20/2020 HPV DNA, high- risk HPV high risk NOT DETECT ED normal Not Available [facility] ([facility]) [address] [place] [address], [place], [address], 05/20/2020 12:53:49 08/10/19 24 08/10/2023 IMAGE GUIDE D PAP AND HPV REGAR DLESS image guided Pap, HPV regardless of Pap result SEE RESULT S BELOW CASE REPOR T: Cytol ogy Gynec ologi hilario Repor t Case: [id number] Autho balbir bhakta Provi nicola: Susan salas , Frank Araiza cted: 08/10 1506 [employer] Order ing Locat ion: [place] [facility] Recei sadie: 08/13 0739 First Scree n: Keegan sabillon, Yaneli Rescr een: Liane Turner, CT Speci men: Janice askew Pap - Image d, Cervi x STATE MENT OF ADEQU ACY: Satis facto ry for evalu ation Trans forma tion zone compo nent prese nt FINAL DIAGN OSIS: Negat rufino for Intra epith elial Danyel reyes or Jono alvarado (NIL) . Elect neli sotelo kofi d by Liane Turner, CT on 2023 at 1:40 PM ----- ----- ----- ----- ----- ----- ----- ----- ----- ----- ----- ----- ----- ----- ----- ----- ----- ---- HPV RESUL TS: HPV mRNA E6/E7 : No HPV mRNA Detec jillian NOTE: This high risk HPV mRNA assay detec ts fourt een high- risk HPV types (16, 18, 31, 33, 35, 39, 45, 51, 52, 56, 58, 59, 66, 68) witho ut diffe renti ation . COMME NT: This speci men was revie wed by a Cytot echno logis t and/o r Patho logis t (as indic ated in this repor t) after evalu ation using the Thinp rep Imagi ng Syste m. CLINI HILARIO INFOR MATIO N: Menst rual Statu s: LMP (if appli cable ): Clini hilario Histo ry/Pr eviou s Pap: Type of Neopl oksana (if appli cable ): Signi fican t Clini hilario Findi ngs: Other Histo ry: Hormo duke (if appli cable ): PAP EDUCA SARA L NOTE: The Pap Test is a scree azar test with an inher ent false negat rufino rate. Liqui d-bas ed sampl ing may decre ase, but will not elimi efrain, false negat rufino resul ts. A negat rufino resul t does not precl ude the prese nce and/o r devel opmen t of disea se, since the prese nce of abnor mal cells in the sampl e depen ds on the locat ion of the lesio n and sampl ing techn ique. Ross nued regul ar scree azar is the best metho d of cance r preve ntion . If repor jillian cytol ogic findi ng do not corre late with physi hilario and/o r histo rical findi ngs, furth er inves tigat ion is recom martha d, as clini amandeep murcia nted. Not Available [facility] (Lab) [address] [facility], [place], [address], 08/14/2023 14:43:57 06/02/20 20 06/01/2020 MAMMO , scree azar, bilat eral No observ ation record ed. [facility] [address], [place], [address], 06/03/2020 09:35:14 10/06/19 22 10/04/2021 MAMMO , scree azar, bilat eral No observ ation record ed. [facility] [address], [place], [address], 10/06/2021 09:20:19 04/01/20 23 03/31/2023 MAMMO , scree azar, bilat eral No observ ation [facility] ed[facility] [facility] [address], [place], [address], 08/10/2023 11:02:52 Result Notes None recorded. Problems Name Problem SNOMED Code Status Onset Date Resolution Date Notes Provider Name and Address Organization Details Recorded Time Asthma 891626218 Completed 201906/21/2021 Kina fernandes [facility] 12:22:11 Speciali zed medical examinat ion Completed 201006/21/2021 Encounte r for Papanico laou cervical smear to confirm findings of recent normal smear followin g initial abnormal smear;Re corded Elsewher e: No Locat ion: [facility] S ource: EHR Bag Sewer melony: N Cheriseti ce ID: 0001 Miguel Angel lable Time: 06:00:00 PM Kina Zarate dom [facility] 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 12:22:[address] Concept Completed 201806/21/2021 Encntr for general adult medical exam w/o abnormal findings ;Recorde d Elsewher e: No Locat ion: [facility] S ource: EHR Bag Sewer melony: N Shen ce ID: 0001 Miguel Angel lable Time: 11:00:00 AM Kina fernandes [facility] 12:22:32 Abdomina l pain [id number] Completed 201206/21/2021 Abdomina l pain, other specifie d site;Rec orded Elsewher e: No Locat ion: [facility] S ource: EHR Bag Sewer melony: N Cheriseti ce ID: 0001 Miguel Angel lable Time: 01:45:00 PM Kina fernandes [facility] 12:22:07 Speciali zed medical examinat ion Completed 201406/21/2021 Gynecolo gical Examinat ion;Dany rded Elsewher e: No [facility] Bag Sewer melony: N Cheriseti ce ID: 0001 Miguel Angel lable Time: 09:00:00 AM Kina fernandes, [facility] 1 12:22:36 Insertio n of intraute rine contrace ptive device Completed 201606/21/2021 Encounte r for insertio n of intraute rine contrace ptive device;R ecorded Elsewher e: No Locat ion: [facility] S ource: EHR Bag Sewer melony: N Practi ce ID: 0001 Miguel Angel lable Time: 08:30:00 AM Kina fernandes, [facility] 12:22:23 Screenin g for malignan t neoplasm of rectum Completed 201606/21/2021 Encounte r for screenin g for malignan t neoplasm of rectum;R ecorded Elsewher e: No Locat ion: [facility] Cher[facility] ID: 0001 Miguel Angel lable Time: 08:30:00 AM Kina fernandes, [facility] 12:22:30 Female genital organ symptoms [id number] Completed 201406/21/2021 Pelvic pain;Rec orded Elsewher e: No Locat ion: [facility] S ource: EHR Bag Sewer melony: N Practi ce ID: 0001 Miguel Angel lable Time: 03:00:00 PM Kina fernandes [facility] 12:22:21 Removal of intraute rine device Completed 201106/21/2021 REMOVAL OF IUD;Dany rded Elsewher e: No Locat ion: [facility] N Practi ce ID: 0001 Miguel Angel lable Time: 03:30:00 PM Kina fernandes [facility] 12:22:27 Pregnanc y test negative [id number] Completed 201606/21/2021 Encounte r for pregnanc y test, result negative ;Recorde d Elsewher e: No Locat ion: [facility] vesna [facility] S ource: EHR Bag Sewer melony: N Cheriseti ce ID: 0001 Miguel Angel lable Time: 08:30:00 AM Kina Zarate dom, [facility] 12:22:25 Contrace ptive sheath status [id number] Completed 201606/21/2021 IUD follow up;Recor ded Elsewher e: No Locat ion: [facility] vesna [facility] S ource: EHR Bag Sewer melony: N Cheriseti ce ID: 0001 Miguel Angel lable Time: 03:15:00 PM Kina Zarate [facility] 12:22:14 Disorder of breast 42495615 Completed 201306/21/2021 DISORDER S BREAST NEC;Dany rded Elsewher e: No Locat ion: [facility] vesna [facility] S ource: EHR Bag Sewer melony: N Cheriseti ce ID: 0001 Miguel Angel lable Time: 01:30:00 PM Kina Zhengtz dom [facility] 12:22:16 Adult health examinat ion Completed 201406/21/2021 ROUTINE MEDICAL EXAM;Rec orded Elsewher e: No [facility] Bag Sewer melony: N Practi ce ID: 0001 Miguel Angel lable Time: 09:00:00 AM Kina Zarate dom, [facility] 12:22:09 Urinary tract infectio us disease [id number] Completed 201406/21/2021 Urinary Tract Infectio n;Record ed Elsewher e: No Locat ion: [facility] S ource: EHR Bag Sewer melony: N Practi ce ID: 0001 Miguel Angel lable Time: 03:00:00 PM Kina Elliot dom [facility] 12:22:40 Screenin g for malignan t neoplasm of cervix Completed 201106/21/2021 Screenin g for malignan t neoplasm s of the cervix;R ecorded Elsewher e: No Locat ion: [facility] S ource: EHR Bag Sewer melony: N Shen ce ID: 0001 Miguel Angel lable Time: 06:00:00 PM Kina Zarate dom [facility] 12:22:28 Dysmenor leny [id number] Completed 201106/21/2021 Dysmenor leny;Rec orded Elsewher e: No Locat ion: [facility] S ource: EHR Bag Sewer melony: Y Shen ce ID: 0001 Miguel Angel lable Time: 10:30:00 AM Kina Zarate dom [facility] 12:22:18 Family planning surveill ance Completed 201106/21/2021 Contrace ptive surveill ance, unspecif ied;Dany rded Elsewher e: No Locat ion: [facility] S ource: EHR Bag Sewer melony: N Shen ce ID: 0001 Miguel Angel lable Time: 10:30:00 AM Kina Zarate dom [facility] 12:22:20 Problem Notes None recorded. Procedures Surgical History Date Name Laterality Status Provider Name and Address Organization Details Recorded Time 08/10/19 24 Date of Last Pap Smear completed PIERRE Coughlin [facility] 08/15/2024 09:28:14 03/31/20 23 Date of Last Mammogram completed Charis Gibson [facility] 08/10/2023 10:15:55 08/23/19 20 Appendectomy completed Kina Zarate [facility] 06/21/2021 12:23:41 05/05/20 07 section completed Kina Zarate [facility] 06/20/2021 17:14:30 10/25/19 03 section completed Kina Zhengtz [facility] 06/20/2021 17:14:11 Imaging Results None recorded. Procedure Notes None recorded. Medical Equipment None Reported. Allergies Allergen ID Allergen Name Allergen Category Reaction Reaction Severity Criticality Documentation Date Start Date Code Code System Note Provider Name and Address Organization Details Recorded Time 2510 Product containin g penicilli n (product) medicatio n Not available Not available Not available 05/18/2020 87547 8001 SNOMED Kina Zarate [facility] 0 09:22:17 2511 POLLEN EXTRACTS environme nt,medica tion Not available Not available Not available 05/18/2020 28688 6 RxNorm Kina Zarate [facility] 0 09:22:25 Medications Name Sig Start Date Stop Date Status Note LastModified by Organization Details LastModified Time Mirena 21 mcg/24 hr (up to 8 years) 52 mg intrauter ine device 2016 active Prescrib ed Elsewher e: Yes Loca tion: [facility] M odify By: seun shirleyuntjeane DateTime : 06/07/20 17 03:15:00 PM Not Available Not Available Not Available silver sulfadiaz ine 1 % topical cream 06/21 completed Not Available Not Available Not Available metformin 500 mg tablet active Not Available Not Available Not Available venlafaxi ne ER 37.5 mg capsule,e xtended release 24 hr active Not Available Not Available Not Available prednison e 10 mg tablet 06/21 completed Not Available Not Available Not Available atorvasta tin 10 mg tablet active Not Available Not Available Not Available azithromy syed 250 mg tablet 08/10 completed Not Available Not Available Not Available hydrocodo ne 5 mg-acetam inophen 325 mg tablet 06/21 completed Not Available Not Available Not Available sulfameth oxazole 800 mg-trimet hoprim 160 mg tablet TAKE 1 TABLET BY MOUTH TWICE DAILY FOR 10 DAYS 06/21 completed Not Available Not Available Not Available doxycycli ne monohydra te 100 mg capsule 08/15 completed Not Available Not Available Not Available oseltamiv ir 75 mg capsule 06/21 completed Not Available Not Available Not Available Cipro 500 mg tablet take 1 tablet by oral route every 12 hours 12/24 completed Prescrib ed Elsewher e: No Locat ion: [facility] odify By: iglesia worrell DateTime : 08/10/19 15 03:00:00 PM Not Available Not Available Not Available Qvar 40 mcg/actua tion Metered Aerosol oral inhaler inhale 2 puff by inhalati on route 2 times every day 11/06 completed Prescrib ed Elsewher e: Yes Loca tion: [facility] odify By: phillip Encount er DateTime : 03/15/20 11 06:00:00 PM Not Available Not Available Not Available diclofena c sodium 75 mg tablet,de layed release 07/13 completed Not Available Not Available Not Available Allergy Medicatio n 25 mg capsule take 2 capsule by ORAL route 4 - 6 hours as needed active Prescrib ed Elsewher e: Yes Loca tion: [facility] odify By: mert zheng DateTime : 02/26/20 11 10:01:12 AM Not Available Not Available Not Available albuterol sulfate HFA 90 mcg/actua tion aerosol inhaler INHALE 2 PUFFS BY INHALATI ON EVERY 4-6 HOURS NEEDED active Not Available Not Available No t Available Vitamin D2 1,250 mcg (50,000 unit) capsule take 1 capsule by oral route every week 06/21 completed Prescrib ed Elsewher e: No Locat ion: [facility] odify By: urvashi zheng DateTime : 03/03/20 05:03:43 PM Not Available Not Available Not Available Terazol 7 0.4 % vaginal cream insert 1 applicat orful by vaginal route every day for 7 days at bedtime 08/20 completed Prescrib ed Elsewher e: No Locat ion: [facility] odify By: mdowdy E ncounter DateTime : 08/10/19 15 03:00:00 PM Not Available Not Available Not Available metformin ER 500 mg tablet,ex tended release 24 hr active Not Available Not Available Not Available Inhaler Decongest ant 50 mg nasal active Prescrib ed Elsewher e: Yes [facility] By: mert Cruz ncounter DateTime : 02/26/20 11 10:01:12 AM Not Available Not Available Not Available mirtazapi ne 7.5 mg tablet active Not Available Not Available Not Available Decongest ant Inhaler 06/21 completed Not Available Not Available Not Available Allergy Medicatio n 06/21 completed Not Available Not Available Not Available Vitamin D2 06/21 completed Not Available Not Available Not Available Mounjaro 2.5 mg/0.5 mL subcutane ous pen injector ADMINIST ER 2.5 MG UNDER THE SKIN 1 TIME WEEKLY FOR 4 WEEKS active Not Available Not Available No t Available Vitals Date Recorded Body height Body mass index (BMI) Body weight Systolic blood pressure Diastolic blood pressure Provider Name and Address Organization Details Last Updated DateTime 08/10/2023 170.18 cm 25.8 kg/m2 40868.74 g 127 mm[Hg] 82 mm[Hg] Charis Gibson [facility] 4 10:42:20 Date Recorded Body height Body mass index (BMI) Body weight Systolic blood pressure Diastolic blood pressure Provider Name and Address Organization Details Last Updated DateTime 08/15/2024 170.18 cm 0.3 kg/m2 907.18 g 132 mm[Hg] 82 mm[Hg] PIERRE Coughlin [facility] 5 09:32:51 Date Recorded Body height Body mass index (BMI) Body weight Systolic blood pressure Diastolic blood pressure Provider Name and Address Organization Details Last Updated DateTime 05/18/2020 170.18 cm 26.3 kg/m2 33581.52 g 132 mm[Hg] 86 mm[Hg] Kina Zarate [facility] 0 09:22:02 Date Recorded Body height Body mass index (BMI) Body weight Systolic blood pressure Diastolic blood pressure Provider Name and Address Organization Details Last Updated DateTime 06/21/2021 170.18 cm 26 kg/m2 60761.33 g 139 mm[Hg] 84 mm[Hg] Kina Elliot [facility] 1 12:20:35 Date Recorded Body height Body mass index (BMI) Body weight Systolic blood pressure Diastolic blood pressure Provider Name and Address Organization Details Last Updated DateTime 07/13/2022 170.18 cm 25.5 kg/m2 47219.56 g 124 mm[Hg] 79 mm[Hg] Kina Zarate [facility] 2 09:32:54 Social History Question Answer Notes LastModified by Organizat ion Details LastModified Time Tobacco Smoking Status Never Smoker Charis Arthur fernandes, [facility] 08/10/2023 10:43:51 Do You Have An Advance Directive? No [email or web address] Information n ot available 06/21/2021 How Many Years Have You Consumed Alcohol? 25 [email or web address] Information not available 06/21/2021 Are You Blind Or Do You Have Difficulty Seeing? No [email or web address] Information n ot available 06/21/2021 What Is Your Level Of Caffeine Consumption? Moderate [email or web address] Information not available 06/21/2021 In The 14 Days Before Symptom Onset, Have You Had Close Contact With A Laboratory-confirm ed COVID-19 While That Case Was Ill? No [email or web address] Information n ot available 06/21/2021 In The 14 Days Before Symptom Onset, Have You Had Close Contact With A Person Who Is Under Investigation For COVID-19 While That Person Was Ill? No [email or web address] Information not available 06/21/2021 Have You Been To An Area Known To Be High Risk For COVID-19? No [email or web address] Information not available 06/21/2021 Are You Deaf Or Do You Have Serious Difficulty Hearing? No [email or web address] Information not available 06/21/2021 What Type Of Diet Are You Following? REGULAR [email or web address] Information n ot available 06/21/2021 What Is The Highest Grade Or Level Of School You Have Completed Or The Highest Degree You Have Received? DA20945-5 [email or web address] Information not available 06/21/2021 Are There Any Guns Present In Your Home? Yes Information not available 06/21/2021 What Was The Date Of Your Most Recent Tobacco Screening? 06/21/2021 Information not available 08/10/2023 Do You Use Protection During Sex? No Information not available 08/10/2023 Do You Use Your Seat Belt Or Car Seat Routinely? Yes [email or web address] Information not available 06/21/2021 Are You Sexually Active? Yes Information not available 08/15/2024 Do You Have Smoke And Carbon Monoxide Detectors In Your Home? Yes [email or web address] Information not available 06/21/2021 How Much Tobacco Do You Smoke? No [email or web address] Information not available 05/18/2020 Do You Use Sunscreen Routinely? Yes [email or web address] Information not available 06/21/2021 Have You Used IV Drugs? No [email or web address] Information not available 06/21/2021 Do You Have Difficulty Walking Or Climbing Stairs? No Information not available 08/15/2024 Sex: Unknown Functional Status Question Answer Note LastModified by Organizat ion Details LastModified Time Do you use any illicit or recreational drugs? No [email or web address] Information not available 06/21/2021 What is your level of alcohol consumption? Occasional [email or web address] Information not available 05/18/2020 Do you or have you ever used smokeless tobacco? Never used smokeless tobacco Information not available 08/10/2023 Are you currently employed? Yes [email or web address] Information not available 08/15/2024 Are you able to walk? YESWOREST [email or web address] Information not available 06/21/2021 Are you able to care for yourself? 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 No [email or web address] Information not available 08/15/2024 Do you or have you ever used e-cigarettes or vape? Never used electronic cigarettes Information not available 08/10/2023 What is your exercise level? Occasional [email or web address] Information not available 05/18/2020 Mental Status Question Answer Note LastModified by Organization D etails LastModified Time Do you feel stressed (tense, restless, nervous, or anxious, or unable to sleep at night)? [id number] [email or web address] Information not available 06/21/2021 Family History Relationship Description Onset Age of this Age Resolved Age Notes LastModified by Organization Details LastModified Time Paternal Grandmother Hypertensive disorder [email or web address] Not available 05/18 09:33:18 Father Hypertensive disorder [email or web address] Not available 05/18 09:33:18 Father Heart disease [email or web address] Not available 05/18 09:35:47 Father Diabetes mellitus [email or web address] Not available 05/18 09:36:10 Father Cerebrovascu lar accident [email or web address] Not available 09:37:08 Maternal Grandmother Diabetes mellitus [email or web address] Not available 05/18 09:33:33 Maternal Grandmother Heart disease [email or web address] Not available 05/18 09:35:47 Maternal Grandmother Malignant tumor of breast [email or web address] Not available 05/18 09:36:30 Paternal Grandfather Heart disease [email or web address] Not available 05/18 09:35:47 Paternal Grandfather Cerebrovascu lar accident Not available 09:37:08 Mother Malignant tumor of breast [email or web address] Not available 05/18 09:36:30 Mother Malignant neoplasm of skin [email or web address] Not available 2024 09:12:01 Mother Malignant melanoma [email or web address] Not available 2024 09:12:01 Notes:Father: Diabetes melli tus, Heart disease, Hypertension Maternal grandmother: Heart disease, Cancer, breast, Diabetes mellitus Mother: Cancer, breast, Cancer, skin, Melanoma Paternal grandfather: Stroke, Heart disease Paternal grandmother: Hypertension Medical History Condition Response Allergies (Food, seasonal, environmental ) Y Other N Drug/Latex Allergies/Reactions N Blood Transfusion N Breast Cancer N Dermatologic Disorders N Lung Disease N Defects or Inherited Disease N Breast Problem N Gestational Diabetes N Hematologic disorders N Anesthesia Complications N History of STI N Deep Vein Thrombosis N Polycystic ovary syndrome N Anxiety Disorder N Autoimmune disease N Arthritis N Polyps N Infertility N Acid Reflux (GERD) N History of abnormal pap N Cancer N Varicosities N Stroke N Neurologic/Epilepsy N Endometriosis N High Cholesterol Y Fibromyalgia N Headaches N Kidney Disease N Heart Problems N Thyroid Problems N Kidney or Bladder Problems N GI Problems N Eating Disorder N Anemia N Art (IVF or FET) N Psychiatric Illness N Ovarian Cancer N Diabetes Y Pulmonary (TB, Asthma) N Hepatitis/Liver Disease N No Past Medical History N Eczema N Urinary Tract Infection N Abuse/Domestic Violence N Asthma Y Trauma/Violence N Depression/ depression N Heart Disease N Pre-Eclampsia N Hypertension N Osteoporosis N Thrombophilias N Gynecological History Statement/Question Response Date of Last Mammogram 03/31/2023 Date of LMP 05/08/2017 N On BCP's at Conception? N STIs/STDs N Was last menstrual period normal Y HPV Vaccine N Current Control Method IUD Age at First Child 21 Date of control 02/21/2016 Date of Last Colonoscopy Sexually Active? Y IUD Menses Monthly N Date of DEXA bone scan Age of first menstrual cycle 15 Date of Last Pap Smear 08/10/2023 Sexual Problems? N LMP Unknown Desired Control Method IUD N Obstetrics History GPAL:G 2 P 2 0 0 2 Type Value Full Term 2 Living 2 Total 2 Past Encounters Encounter ID Performer Location Encounter Start Date Encounter Closed Date Diagnosis/Indication Diagnosis SNOMED-CT Code Diagnosis ICD10 Code Diagnosis Note [id number] Dilia Walker [facility] [address],[facility] [place] [address] 05/18/2020 09:06:04 05/18/2020 13:58:58 Gynecologic examination 24174674 Z01.419 [id number] Dilia Walker [facility] [address],[facility] [place] [address] 06/21/2021 12:02:29 06/21/2021 16:10:45 Gynecologic examination [id number] Z01.419 [id number] Xiao Houston [facility] [address] [address] 07/13/2022 09:22:04 07/13/2022 09:52:07 Gynecologic examination 86658299 Z01.419 Take Calcium with Vitamin D 12-1500mg daily. Do monthly self breast exams. It is advised to get annual flu shot in the fall and she could obtain at [facility] or [facility] care clinic. If you haven't received the Tdap vaccine in the last 10 years you should obtain one as well. Have mammogram yearly, bone density every 2-3 years and colonoscop y every 5-10 years depending on findings and history. Engage in daily exercise of low impact aerobic exercise 45-60 minutes 4-5 times weekly. Avoid tobacco and illicit drugs as well as using moderation with alcohol intake less than 1-2 8 oz beverages daily. This lifestyle behavior pattern will lead to less health conditions and longer life span. If BMI greater than 25 weight watchers or dietary consult advised. Questions have been answered. Patient appears to understand instructio ns, but if you have any further questions call or respond to this email Pap/hpv due 2022 STD Screen declined Genetic Screen discussed; will consider Colon Screen PCP Dexa Screen na Routine Labs PCPMammo ordered [id number] [facility] [address] [address] 08/10/2023 10:36:57 08/10/2023 11:04:37 Gynecologic examination [id number] Z01.419 Take Calcium with Vitamin D 12-1500mg daily. Do monthly self breast exams. It is advised to get annual flu shot in the fall and she could obtain at [facility] or [facility]. If you haven't received the Tdap vaccine in the last 10 years you should obtain one as well. Have mammogram yearly, bone density every 2-3 years and colonoscop y every 5-10 years depending on findings and history. Engage in daily exercise of low impact aerobic exercise 45-60 minutes 4-5 times weekly. Avoid tobacco and illicit drugs as well as using moderation with alcohol intake less than 1-2 8 oz beverages daily. This lifestyle behavior pattern will lead to less health conditions and longer life span. If BMI greater than 25 weight watchers or dietary consult advised. Questions have been answered. Patient appears to understand instructio ns, but if you have any further questions call or respond to this email Pap/hpv sentSTD Screen declinedGe netic Screen discussed; will considerCo rafael Screen PCPDexa Screen naRoutine Labs PCPMammo wnl 03/2023 PCP A Mirena IUD prevents for up to 8 years, and also helps with heavy periods for up to 5 years in women who choose an IUD for control. [id number] ASHLEY Land [place] [address] [address] 08/15/2024 09:11:58 08/15/2024 10:32:56 Gynecologic examination [id number] Z01.419 WWEBC - Mirena IUD, will 05/08/2025 Pap - UTD/not indicated todaySTI screen - declinedMa mmogram - order givenColon cancer screening - UTDDexa - n/aRoutine labs - UTD/PCPRTC in 1 yr or sooner if needed Do monthly self breast exams.It is advised to get annual flu shot in the fall and she could obtain at local pharmacy. If you haven't received the Tdap vaccine in the last 10 years you should obtain one as well.Have mammogram yearly, bone density every 2-3 years and stay up to date on colon cancer screening. Engage in regular exercise. Avoid tobacco and illicit drugs. This lifestyle behavior pattern will lead to less health conditions and longer life span. If BMI greater than 25 dietary consult advised.Qu estions have been answered. Screening for malignant neoplasm of breast [id number] Z12.39 [facility] [id number] Z30.9 IUD will 05/08/2025 discussed with ptwill check labs and reach out to pt with recommenda tions regarding removal vs removal with re-inserti on Menopausal flushing 1983 23901 N95.1 Discussed management options for VMS (hormonal vs non-hormon al)decline d at this timeif symptoms worsen encouraged to RTC Health Concerns Section Related Observation LastModified by Organization Detai ls LastModified Time None Recorded Concern Status LastModified by Organization Details LastModified Time None Recorded Advance Directives Directive N: Payers Encounter Date Sequence Insurance Name Policy Number Policy Alejandro Covered Member ID Alejandro Member ID Guarantor Name 05/18/2020 1 [employer] [id number] Micki Rueda [id number] Micki Rueda 06/21/2021 1 [employer] [id number] Micki Rueda [id number] Micki Rueda 07/13/2022 1 [facility] [id number] Micki Rueda [id number] Micki Rueda 08/10/2023 1 [facility] [id number] Micki Rueda [id number] Micki Rueda 08/15/2024 1 [employer] (POS II) [id number] David Rueda [id number] Micki Rueda Notes Date Note Type Note Provider Name and Address Organization Details Recorded Time 05/18/2020 text/html Annual GYNReport ed bypatient.Menstrua l cycle:Normal menses Urinary symptoms:No hematuria; No incontinence Vulva:No genital lesion Vagina:Normal vaginal discharge Breast:No breast pain; No breast lump; No nipple discharge Current Contraception:Sati sfied with current contraception; Intrauterine device (iud) Sexual complaints:No sexual complaints; No pain during intercourse; Normal libido Menopausal Symptoms:No menopausal symptoms; Normal vaginal lubrication Psychological symptoms:No depression; No anxiety; No PMDD Dilia Walker CNM [address], [place], [address], [facility] 05/18/2020 09:40:42 06/21/2021 text/html Annual GYNReport ed bypatient.Breast:N o breast pain; No breast lump; No nipple discharge Current Contraception:Sati sfied with current contraception; Intrauterine device (iud) Sexual complaints:No sexual complaints; No pain during intercourse; Normal libido Menopausal Symptoms:No menopausal symptoms; Normal vaginal lubrication Psychological symptoms:No depression; No anxiety; No PMDD Preventive measures:Encourage self breast examination; Encourage regular exercise; Encourage no tobacco use; Encourage regular mammograms starting age 40Notes:no hx abnl pap, no cycle with IUD Dilia Walker CNM [address], [place], [address], [facility] 06/21/2021 15:58:42 07/13/2022 text/html Annual GYNReport ed bypatient.Menstrua l cycle:Normal menses (Amenorrheic on Mirena IUD) Urinary symptoms:No hematuria; No incontinence Vulva:No genital lesion Vagina:Normal vaginal discharge Breast:No breast pain; No breast lump; No nipple discharge Current Contraception:Sati sfied with current contraception; Intrauterine device (iud) Sexual complaints:No sexual complaints; No pain during intercourse; Normal libido Menopausal Symptoms:No menopausal symptoms; Normal vaginal lubrication Psychological symptoms:No depression; No anxiety; No PMDD Preventive measures:Encourage self breast examination; Encourage regular exercise; Encourage no tobacco use; Encourage regular mammograms starting age 40; Needs to schedule mammogram; Needs to schedule colonoscopy (Scheduled with PCP/GI) [facility] [address], [place], [address], [facility] 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 Post-MenopausalRep orted bypatient.Menopaus al Symptoms:no menopausal symptoms; normal vaginal lubrication Vaginal Bleeding:history of menopause having occurred; no history of post menopausal bleeding Urinary Symptoms:no hematuria; no incontinence; no nocturia; no urinary frequency Vulva:no genital lesion; no vulvar atrophy Vagina:normal vaginal discharge; no vaginal atrophy Breast:no breast lump; no nipple discharge; no breast pain Sexual Complaints:no sexual complaints Psychological Symptoms:no depression; no anxiety Preventive Measures:encourage regular mammograms starting age 40; encourage self breast examination; encourage regular exercise; encourage no tobacco use; mammogram performed within the past year; needs to schedule colonoscopy ASHLEY GibbonsNORMA [address], [place], [address], [facility] 08/10/2023 11:04:17 08/15/2024 text/html Annual GYNReport ed bypatient.Menstrua l cycle:Normal menses Urinary symptoms:No hematuria; No incontinence Vulva:No genital lesion Vagina:Normal vaginal discharge Breast:No breast pain; No breast lump; No nipple discharge Current Contraception:Sati sfied with current contraception; Intrauterine device (iud) Sexual complaints:No sexual complaints; No pain during intercourse; Normal libido Menopausal Symptoms:Normal vaginal lubrication;Hot flashes Psychological symptoms:No depression; No anxiety; No PMDD Preventive measures:Encourage self breast examination; Encourage regular exercise; Encourage no tobacco use; Encourage regular mammograms starting age 40Notes:54yo wweno h/o abnormal papsMirena IUD inserted 05/08/2017last pap 07/2023 : nilm, HPV (-)mammogram duecologuard done outine labs UTD/PCP hot flashes a few times per week for the last 2-3 months ASHLEY Land [address], [place], [address], [facility] 08/15/2024 10:31:45 OBGyn Episode Ob Episode Information Episode Created Date Number of Fetuses Patient Bloodtype Patient rh Status Prepregnancy Weight lbs Domestic Partner Domestic Partner Phone Father Name Eligibility Specialist Status 05/18/20 20 1 CLOSED Fetus Data First Name Last Name Admitted to NICU Weight (g) Sex Living Outcome Pediatric Complications Fetus ID Race Codes Race Delivery Type 3175.14 4 F Full Term [id number] Repeat Edwin Calculation Initial Edwin Date Initial Exam Date Initial Exam Provider Initial Ultrasound Date Last Menstrual Period Date Ultra Sound Weeks Gestation 0 Eighteen To Twenty Week Edwin Update Ultra Sound Date Fundal Height At Umbil Quickening Date Ultra Sound Latest Weeks Gestation Final Edwin Confirmed By Final Edwin Confirmed Date Final Edwin Date Ultra Sound Latest Days Gestation 0 0 Menstrual History Last Menstrual Date Menses Monthly On Bcp Conception Prior Menses Frequency Hcg Plus Date Menarche Onset Age Delivery Information Delivery Date Delivery Type Labor Anesthesia Weeks Gestation Incision Type Labor Labor Length Hrs Delivered By Post Complications Tubal Sterilization Discharge Date Comments 7 37 Discharge Information Feeding Method Contraceptive Method Maternal HG B and HCT Levels Ob Episode Information Episode Created Date Number of Fetuses Patient Bloodtype Patient rh Status Prepregnancy Weight lbs Domestic Partner Domestic Partner Phone Father Name Eligibility Specialist Status 05/18/20 20 1 CLOSED Fetus Data First Name Last Name Admitted to NICU Weight (g) Sex Living Outcome Pediatric Complications Fetus ID Race Codes Race Delivery Type 3742.13 4 M Full Term [id number] Primary Edwin Calculation Initial Edwin Date Initial Exam Date Initial Exam Provider Initial Ultrasound Date Last Menstrual Period Date Ultra Sound Weeks Gestation 0 Eighteen To Twenty Week Edwin Update Ultra Sound Date Fundal Height At Umbil Quickening Date Ultra Sound Latest Weeks Gestation Final Edwin Confirmed By Final Edwin Confirmed Date Final Edwin Date Ultra Sound Latest Days Gestation 0 0 Menstrual History Last Menstrual Date Menses Monthly On Bcp Conception Prior Menses Frequency Hcg Plus Date Menarche Onset Age Delivery Information Delivery Date Delivery Type Labor Anesthesia Weeks Gestation Incision Type Labor Labor Length Hrs Delivered By Post Complications Tubal Sterilization Discharge Date Comments 3 failure to descend Discharge Information Feeding Method Contraceptive Method Maternal HG B and HCT Levels
--- OUTSIDE RECORDS SUMMARY | 2024-12-18 15:45 | XMS_ITS | Referral Summary ---
Author Organization [facility] [address] lt Address [address] [address] Care Team Providers Care Belly Roller Name Role Phone Narcisa Newell MD Primary Care Provider [phone] Encounters Date Type Department Care Team Description 10/04/2024 6:30 PM CDT Office Visit 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
== END 2024-12-18 15:38 | disposition home or self-care (01) ==
LOC: CHSIMG 15:43
PROVIDERS: PCP Internal Medicine; Visit Provider Internal Medicine
DX: M25.512 Pain in left shoulder (principal); Z78.0 Asymptomatic menopausal state; M85.88 Other specified disorders of bone density and structure, other site
CPT/HCPCS: 73030; 77080

== ENCOUNTER 2024-12-26 08:32 | Outpatient (RCR) | payer OTHER, SELFPAY ==
--- NOTE | 2025-01-02 16:10 | OPREHPOC ---
Outpatient Therapy Plan of Care This is a Multidisciplinary Plan of Care that may contain components documented by all disciplines (PT, OT, and ST.) PT Problem 1 PT Problem #1 Knowledge Deficit PT Goal 1 Goal / Goal Update pt to be independent in HEP Target Visit 4 PT Problem 2 PT Problem #2 Impaired Range of Motion PT Goal 1 Goal / Goal Update Pt to have at least 145 degrees of active L GH flexion and abduction Pt to have at least 60 degrees of active L GH ER and IR Target Visit 12 PT Problem 3 PT Problem #3 Impaired Strength PT Goal 1 Goal / Goal Update pt to have at least 4+/5 strength of the L shoulder globally Target Visit 12 PT Problem 4 PT Problem #4 Impaired Functional Mobility PT Goal 1 Goal / Goal Update Pt to report that she can reach overhead to get stuff out of her cabinets with no increase in pain Pt to have functional IR to at least L5 to be able to perform ADLs Pt to report that she can golf with no restriction pt to report a DASH score of less than or equal to 30% to improve quality of life and return to PLOF Target Visit 12
--- NOTE | 2025-01-02 16:11 | PTOPEVAL1 ---
Assessment and note entered by JT File, PT Evaluation Information Assessment Status Evaluation ICD-10 Condition Codes (PT) Pain in left shoulder M25.512 Onset 12/18/24 Subjective Information Pt reports that she doesn't remember injuring her L shoulder, but it just started all of a sudden a month or two ago. Pt reports that she can not use her L arm for most daily activities. She reports that lying on her side causes a sharp pain. Pt reports that she can not reach up or behind her back. Pt states that it feels like someone is ripping her arm out if she makes quick movements like catching a car door. Pt reports that the pain is a ball in the back of her shoulder. She reports pushing her shoulder in makes it feel it better. Pt reports that she got an x-ray, but nothing showed up that was concerning. Pt report that she wants to get back to golfing. Assessment PT Clinical Summary Judy is a 54 y/o female who presents to skilled PT with L shoulder pain. 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 Pt has deficits in ROM, functional mobility, and strength in the L UE. Skilled PT is indicated to work on deficits, improve quality of life, and return to PLOF. Skilled PT is also needed to help pt reach her goals of being able to reach overhead and return to golf. Plan of Care Interventions Electrical Stimulation,Hot Pack/Cold Pack,Manual Therapy,Neuro Re-education,Patient/Caregiver Education,Therapeutic Activities,Therapeutic Exercise PT Services Indicated Yes Treatment Frequency and 3x a week for 12 visits Duration These treatments will address the objective and functional deficits as defined above. The patient will be advanced safely and appropriately in order for the patient to progress towards his/her prior level of function. Additional exercises will be introduced and as well as a comprehensive home exercise program upon discharge, if needed, ?to ensure carryover of functional gains achieved in the clinic. This treatment plan has been reviewed and agreement upon by the patient.
--- NOTE | 2025-01-02 16:11 | PCPTNOTE ---
On 12/26/24, the student, [David Barajas], provided care and completed [facility] documentation on this patient. I have reviewed the student's documentation and agree with the findings.
--- NOTE | 2025-01-13 09:15 | PCPTNOTE ---
On 01/13/25, the student, [David Barajas], provided care and completed [facility] documentation on this patient. I have reviewed the student's documentation and agree with the findings.
--- NOTE | 2025-01-14 07:11 | PCPTNOTE ---
Cancelled session. Reports she is not feeling well, but will be here tomorrow (01/15/25).
--- NOTE | 2025-02-03 08:59 | OPREHPOC ---
Outpatient Therapy Plan of Care This is a Multidisciplinary Plan of Care that may contain components documented by all disciplines (PT, OT, and ST.) PT Problem 1 PT Problem #1 Knowledge Deficit PT Goal 1 Goal / Goal Update pt to be independent in HEP Target Visit 4 Progress Met PT Goal 2 Goal / Goal Update continue to progress Target Visit 16 PT Problem 2 PT Problem #2 Impaired Range of Motion PT Goal 1 Goal / Goal Update Pt to have at least 145 degrees of active L GH flexion and abduction -progress towards Pt to have at least 60 degrees of active L GH ER and IR -not met for ER, met for IR Target Visit 12 Progress Partially Met PT Goal 2 Goal / Goal Update continue Target Visit 16 PT Problem 3 PT Problem #3 Impaired Strength PT Goal 1 Goal / Goal Update pt to have at least 4+/5 strength of the L shoulder globally Target Visit 12 Progress Not Met PT Goal 2 Goal / Goal Update continue Target Visit 16 PT Problem 4 PT Problem #4 Impaired Functional Mobility PT Goal 1 Goal / Goal Update Pt to report that she can reach overhead to get stuff out of her cabinets with no increase in pain -met Pt to have functional IR to at least L5 to be able to perform ADLs -met Pt to report that she can golf with no restriction -hasn't tried pt to report a DASH score of less than or equal to 30% to improve quality of life and return to PLOF -met Target Visit 12 PT Goal 2 Goal / Goal Update Continue goal for golf Target Visit 16
--- NOTE | 2025-02-03 08:59 | PTOPPROG ---
Assessment and note entered by Cecy Meier, PT Evaluation Information Assessment Status Progress ICD-10 Condition Codes (PT) Pain in left shoulder M25.512 Onset 12/18/24 Subjective Information Judy Rueda reports her left shoulder is doing much better. She is now able to wash her hair and reach into overhead cabinets without pain. She has not tried golfing yet but feels she probably could. She does still note difficulty reaching behind her back and laying on her left side. Assessment PT Clinical Summary Judy Rueda has completed 12 skilled PT visits for left shoulder pain consistent with adhesive capsulitis. She is reporting significantly less pain in the left shoulder and improved ability to reach overhead and behind her head. She is still having difficulty reaching behind the back, turning her arm out, and sleeping on the left side . She has not attempted to play golf. She demonstrates improvements in left shoulder active and passive AROM as well as improved left shoulder strength. Despite these improvements, she does still have functional limitations in left shoulder flexion and external rotation AROM as well as strength deficits. She has met 50% of her goals. She will continue to benefit from skilled PT to further address ongoing limitations and to meet a higher percent of her goals including returning to playing golf. Plan of Care Interventions Electrical Stimulation,Hot Pack/Cold Pack,Manual Therapy,Neuro Re-education,Patient/Caregiver Education,Therapeutic Activities,Therapeutic Exercise PT Services Indicated Yes Treatment Frequency and 1x a week for 4 additional visits Duration These treatments will address the objective and functional deficits as defined above. The patient will be advanced safely and appropriately in order for the patient to progress towards his/her prior level of function. Additional exercises will be introduced and as well as a comprehensive home exercise program upon discharge, if needed, ?to ensure carryover of functional gains achieved in the clinic. This treatment plan has been reviewed and agreement upon by the patient.
== END 2025-03-26 23:59 | disposition home or self-care (01) ==
LOC: CHSPT 08:32
PROVIDERS: PCP Internal Medicine; Visit Provider Internal Medicine
DX: M25.512 Pain in left shoulder (principal)
CPT/HCPCS: 97014; 97110; 97140; 97161; 97750; G0283